=== PATIENT | male | born 1970 | race Hispanic/Latino ===

== ENCOUNTER 2023-03-07 04:58 | Inpatient (IN) | payer BC ==
[2023-03-07] MEDS ORDERED: Acetaminophen 500 MG TAB ONE (05:24)
[2023-03-07 05:26] LABS: #Monocytes 0.9 10x3/uL (0.0-1.1); #Neutrophils 10.2 10x3/uL (1.5-8.4); %Basophils 0.3 % (0.0-2.0); %Eosinophils 0.3 % (0.0-6.0); %Monocytes 7.3 % (0.0-10.0); %Neutrophils 82.8 % (40.0-75.0); Hemoglobin 14.6 g/dL (13.5-17.5); Mean Corpuscular HGB CONC 34.7 g/dL (32.0-36.0); Mean Corpuscular Hemoglobin 30.3 pg (27.0-33.0); Mean Corpuscular Volume 87.3 fl (81.2-95.1); Mean Platelet Volume 10.1 fl (7.4-10.4); Platelet Count 252 10x3/uL (150-450); RBC Distribution Width 13.1 % (11.5-14.5); Red Blood Cell (RBC) Count 4.82 10x6/uL (4.32-5.72); White Blood Cell (WBC) Count 12.3 10x3/uL (3.5-10.5)
[2023-03-07 05:52] LABS: ALT (SGPT) 34 U/L (8-55); Albumin 3.6 g/dL (3.5-5.0); Alkaline Phosphatase 59 U/L (40-110); Anion Gap 16 mmol/L (10-20); BUN (Urea Nitrogen) 8 mg/dL (8.4-25.7); Bilirubin, Total 0.6 mg/dL (0.2-1.2); Calc. Creatinine Clearance 0 mL/min (70-130); Calcium 8.5 mg/dL (7.8-10.44); Carbon Dioxide 23 mmol/L (22-29); Chloride 101 mmol/L (98-107); Estimated GFR 104; Globulin 3.8 g/dL (2.4-3.5); Glucose 108 mg/dL (70-105); Potassium 3.7 mmol/L (3.5-5.1); Protein, Total 7.4 g/dL (6.0-8.3); Sodium 136 mmol/L (136-145)
[2023-03-07 05:56] LABS: AST (SGOT) 30 U/L (5-34)
[2023-03-07 05:58] LABS: SARS-CoV-2 NAA Rapid Test Not Detected (NotDetected)
[2023-03-07 06:07] LABS: CKMB 0.6 ng/mL (0-6.6)
[2023-03-07] MEDS ORDERED: Ketorolac Tromethamine 30 MG/ML VIAL ONE (06:17)
[2023-03-07] MEDS ORDERED: Aspirin Chewable 81 MG TAB ONE (07:20)
[2023-03-07] MEDS ORDERED: Azithromycin 500 MG VIAL ONE (07:21)
[2023-03-07] MEDS ORDERED: cefTRIAXone (ROCEPHIN) 2 GM VIAL ONE (07:21)
[2023-03-07] MEDS ORDERED: Ondansetron ODT 4 MG TAB PO PRN (09:54)
[2023-03-07] MEDS ORDERED: Ondansetron PF 4 MG/2 ML Vial IVP PRN (09:54)
[2023-03-07] MEDS ORDERED: Acetaminophen 650 MG Suppository PR PRN (09:54)
[2023-03-07 10:51] VITALS: BMI 31.4
[2023-03-07] MEDS ORDERED: Iopamidol 370 76% 100 ML VIAL ONE (11:06)
[2023-03-07 11:16] LABS: Legionella Urinary Ag Negative (Negative); Strep pneumo Urine Ag NEGATIVE (NEGATIVE)
[2023-03-07] MEDS: Acetaminophen 325 MG TAB PO PRN ×2 (15:17→22:31)
[2023-03-07] MEDS: Guaifenesin DM 100-10/5 ML UDCUP PO PRN (22:32)
[2023-03-07] MEDS ORDERED: Zolpidem Tartrate 5 MG TAB PO SCH (23:30)
[2023-03-08 05:10] LABS: Anion Gap 11 mmol/L (10-20); BUN (Urea Nitrogen) 9 mg/dL (8.4-25.7); Calc. Creatinine Clearance 143 mL/min (70-130); Calcium 8.8 mg/dL (7.8-10.44); Carbon Dioxide 29 mmol/L (22-29); Chloride 100 mmol/L (98-107); Estimated GFR 103; Glucose 99 mg/dL (70-105); Potassium 3.3 mmol/L (3.5-5.1); Sodium 137 mmol/L (136-145)
[2023-03-08 05:50] LABS: #Eosinphils 0.1 10x3/uL (0.0-0.5); #Neutrophils 7.6 10x3/uL (1.5-8.4); %Basophils 0.4 % (0.0-2.0); %Eosinophils 0.9 % (0.0-6.0); %Lymphocytes 12.4 % (18.0-47.0); %Neutrophils 75.9 % (40.0-75.0); Hemoglobin 14.2 g/dL (13.5-17.5); Mean Corpuscular Volume 103.5 fl (81.2-95.1); Mean Platelet Volume 9.8 fl (7.4-10.4); Platelet Count 155 10x3/uL (150-450); RBC Distribution Width 13.2 % (11.5-14.5); Red Blood Cell (RBC) Count 4.58 10x6/uL (4.32-5.72)
[2023-03-08] MEDS ORDERED: Potassium Chloride 20 MEQ TAB PO SCH ×2 (10:00→21:45)
[2023-03-08] MEDS: cefTRIAXone\\ROCEPHIN 1 GM in Sodium Chloride 0.9% 100 ML IVPB SCH (10:12)
[2023-03-08] MEDS: Aspirin 81 mg Enteric Coated Tablet PO SCH (10:23)
[2023-03-08] MEDS: Guaifenesin DM 100-10/5 ML UDCUP PO PRN ×2 (10:25→22:12)
[2023-03-08] MEDS: Azithromycin 500 MG in Sodium Chloride 0.9% 250 ML 250 ML IVPB SCH (10:28)
[2023-03-08] MEDS ORDERED: Benzonatate 100 MG CAP PO PRN (10:39)
[2023-03-08] MEDS ORDERED: Zolpidem Tartrate 5 MG TAB PO PRN ×2 (21:00)
[2023-03-08] MEDS ORDERED: Electrolyte Replacement Protocol FS SCH (21:15)
[2023-03-09 04:49] LABS: Anion Gap 11 mmol/L (10-20); BUN (Urea Nitrogen) 9 mg/dL (8.4-25.7); Calc. Creatinine Clearance 162 mL/min (70-130); Carbon Dioxide 26 mmol/L (22-29); Chloride 104 mmol/L (98-107); Estimated GFR 107; Glucose 93 mg/dL (70-105); Potassium 3.8 mmol/L (3.5-5.1); Sodium 137 mmol/L (136-145)
[2023-03-09 05:06] LABS: #Eosinphils 0.3 10x3/uL (0.0-0.5); #Monocytes 0.8 10x3/uL (0.0-1.1); #Neutrophils 4.8 10x3/uL (1.5-8.4); %Basophils 0.4 % (0.0-2.0); %Eosinophils 3.8 % (0.0-6.0); %Lymphocytes 18.9 % (18.0-47.0); %Monocytes 10.4 % (0.0-10.0); %Neutrophils 66.1 % (40.0-75.0); Hemoglobin 12.9 g/dL (13.5-17.5); Mean Corpuscular HGB CONC 33.5 g/dL (32.0-36.0); Mean Corpuscular Hemoglobin 29.8 pg (27.0-33.0); Mean Corpuscular Volume 88.9 fl (81.2-95.1); Platelet Count 253 10x3/uL (150-450); Red Blood Cell (RBC) Count 4.33 10x6/uL (4.32-5.72); White Blood Cell (WBC) Count 7.3 10x3/uL (3.5-10.5)
[2023-03-09] MEDS: cefTRIAXone\\ROCEPHIN 1 GM in Sodium Chloride 0.9% 100 ML IVPB SCH (07:47)
[2023-03-09] MEDS: Azithromycin 500 MG in Sodium Chloride 0.9% 250 ML 250 ML IVPB SCH (07:51)
[2023-03-09] MEDS: Guaifenesin DM 100-10/5 ML UDCUP PO PRN (07:52)
[2023-03-09] MEDS: Aspirin 81 mg Enteric Coated Tablet PO SCH (07:52)
[2023-03-09] MEDS ORDERED: TADALAFIL 10 MG PO SCH (09:00)
[2023-03-09 12:19] VITALS: BP 122/66; TEMP 98.4
== END 2023-03-09 12:00 | disposition home or self-care (01) | DRG 871 ==
LOC: SUATTDRO 04:58 → CSHERS 04:58 → CSHERHOLD 09:42 → CSHTELE 13:43
PROVIDERS: ADMIT Emergency Medicine; ATTEND Family Medicine
DX: A41.9 Sepsis, unspecified organism (principal); J15.9 Unspecified bacterial pneumonia; J96.01 Acute respiratory failure with hypoxia; I24.8 Other forms of acute ischemic heart disease; E04.1 Nontoxic single thyroid nodule; Z79.899 Other long term (current) drug therapy; Z90.49 Acquired absence of other specified parts of digestive tract
CPT/HCPCS: 36415; 71045; 71275; 80048; 80053; 82553; 83880; 84484; 85025; 87040; 87449; 87633; 87899; 93005; 94760; 96365; 96375; J0456; J0696; J1650; J1885; J3490; J7050; Q9967; U0002